=== PATIENT | male | born 1965 | race African-American/Black ===

== ENCOUNTER 2020-07-08 18:45 | Emergency (ER) | payer OTHER ==
[2020-07-08 21:26] LABS: BASOPHIL 0.3 % (0-2); EOSINOPHIL 0 % (0-5); HCT 42.3 % (42.0-52.0); HGB 13.2 g/dl (13.2-18.0); MCH 26.8 pg (25.0-31.0); MCHC 31.2 g/dL (32.0-36.0); MONOCYTE 3.8 % (0-12); MPV 10.1 fL (6.0-9.5); NEUTROPHIL 77.6 % (41-80); NRBC 0; PLT 244 K/uL (150-400); RBC 4.92 M/uL (4.70-6.00); RDW 21.1 % (11.5-14.0)
[2020-07-08 21:37] LABS: ALBUMIN 3.9 g/dL (3.4-5.0); BILIRUBIN - TOTAL 0.9 mg/dL (0.2-1.0); BUN/CREAT RATIO (CALC) 14.5 RATIO; CREATININE 1.1 mg/dL (0.67-1.17); GLOBULIN (CALCULATION) 4.3 g/dL; TOTAL PROTEIN 8.2 g/dL (6.4-8.2)
[2020-07-08 21:51] LABS: POTASSIUM 5.7 mmol/L (3.5-5.1)
[2020-07-09] MEDS ORDERED: K-TAB ER10 MEQ PO (00:06)
[2020-07-09] MEDS ORDERED: BENTYL10 MG PO (00:06)
[2020-07-09] MEDS ORDERED: LASIX40 MG PO (00:06)
[2020-07-09] MEDS ORDERED: ZOFRAN4 M1 PO (00:15)
== END 2020-07-09 01:30 | disposition home or self-care (01) ==
LOC: FER 18:45
PROVIDERS: Emergency Medicine
DX: R10.84 Generalized abdominal pain (principal); J81.1 Chronic pulmonary edema; R11.2 Nausea with vomiting, unspecified; E11.9 Type 2 diabetes mellitus without complications; I10 Essential (primary) hypertension; F17.200 Nicotine dependence, unspecified, uncomplicated
CPT/HCPCS: 36415; 71250; 80053; 83690; 84145; 84484; 85025; 93005; 96372; J0500; J0610; J1885; J1940; J2405; J7030

== ENCOUNTER 2020-07-30 08:34 | Emergency (ER) | payer OTHER ==
[~2020-07-30 08:34] MED LIST: BENTYL10 MG PO; K-TAB ER10 MEQ PO; LASIX40 MG PO; ZOFRAN4 M1 PO
[2020-07-30 10:05] LABS: BASOPHIL 0.8 % (0-2); EOSINOPHIL 2.6 % (0-5); HCT 37.7 % (42.0-52.0); HGB 11.6 g/dl (13.2-18.0); LYMPHOCYTE 31.7 % (15-48); MCH 26.4 pg (25.0-31.0); MCHC 30.8 g/dL (32.0-36.0); MCV 85.7 fL (78.0-100.0); MONOCYTE 11.5 % (0-12); MPV 8.9 fL (6.0-9.5); NEUTROPHIL 52.9 % (41-80); NRBC 0; PLT 185 K/uL (150-400); RDW 19.6 % (11.5-14.0); WBC 3.8 K/uL (4.0-10.5)
[2020-07-30 10:51] LABS: BUN/CREAT RATIO (CALC) 12.4 RATIO; CREATININE 1.21 mg/dL (0.67-1.17); POTASSIUM 5.3 mmol/L (3.5-5.1)
== END 2020-07-30 13:19 | disposition home or self-care (01) ==
LOC: FER 08:34
PROVIDERS: Emergency Medicine
DX: I63.9 Cerebral infarction, unspecified (principal); H53.8 Other visual disturbances; I10 Essential (primary) hypertension; F17.210 Nicotine dependence, cigarettes, uncomplicated; Z79.01 Long term (current) use of anticoagulants
CPT/HCPCS: 36415; 70450; 80048; 85025; 93005